=== PATIENT | male | born 1980 | race Two or more races ===

== ENCOUNTER 2022-06-30 23:37 | Emergency (ER) | payer MEDICAID, OTHER ==
[~2022-06-30] VITALS: Ht 165.1 cm; Wt 82.0 kg
[2022-07-01 03:20] VITALS: BP 160/110
[2022-07-01] MEDS ORDERED: LORazepam 1 MG TABLET PO ONE ×2 (03:45)
== END 2022-07-01 03:43 | disposition home or self-care (01) ==
LOC: EMS 23:39
DX: F41.9 Anxiety disorder, unspecified (principal); F14.10 Cocaine abuse, uncomplicated; F17.210 Nicotine dependence, cigarettes, uncomplicated
CPT/HCPCS: 80053; 85025; 99283